=== PATIENT | female | born 2000 | race Caucasian/White ===

== ENCOUNTER 2021-11-25 06:05 | Day surgery (SDC) | payer BC, SELFPAY ==
[2021-11-25] VITALS (11 sets, daily range): BP systolic 95–117; BP diastolic 56–86; PULSE 54–81; RESP 12–18; TEMP 36.1–36.6; O2SAT 97–100; BMI 23.1
[2021-11-25] MEDS: LACTATED RINGERS 1000 ML 1,000 ML 100 ML IV ×2 (06:30→09:03)
[2021-11-25 06:33] LABS: Hemoglobin* 14.5 gm/dL (12.0-16.0)
[2021-11-25] MEDS: SODIUM CHLORIDE 0.9 % (FLUSH) 10 ML SYRINGE IVF (06:42)
[2021-11-25 06:49] LABS: Ur HCG Qualitative* Negative (Negative)
[2021-11-25] MEDS: CEFAZOLIN 2 GM INJ IVP (08:25)
--- NOTE | 2021-11-25 09:15 | P.PCN_ITS ---
Procedure Note Time Seen by Provider: :15 Date Seen: 11/25/21 Will [facility] bill your pro fee for this procedure?: Yes Procedure: Preoperative diagnosis: 21-year-old G0 * Chronic pelvic pain and severe dysmenorrhea * Desires replacement contraceptive device Postoperative diagnosis: Same. Procedure: Ultrasound-guided Nexplanon removal. Replacement of Nexplanon. Diagnostic laparoscopy. Anesthesia: General endotracheal, local. Surgeon: Jordyn Garcia MD Self Pay Specialist: GERARD Braga EBL: 8 mL Urine output: 50 mL clear urine IVF: 1000 ml Specimen: None Findings: On exam under anesthesia: The uterus was anteverted, less than 8 week size, mobile, without masses or nodularity palpable. Adnexa were without mass or fullness bilaterally. The uterus sounded to 8 cm. On laparoscopy: The uterus, bilateral fallopian tubes and ovaries all appeared normal. Normal appendix. Procedure: Amina was taken to the operating room where general anesthetic was found to be adequate. She was placed in the dorsal lithotomy position and an exam under anesthesia was performed with findings stated above. The Nexplanon replacement was performed first. Her left arm was placed in a 90 degree position. An ultrasound was performed to identify the Nexplanon as it was not palpable. The location of the Nexplanon was marked on her skin. The skin the medial left upper arm was prepped with a ChloraPrep. An incision was made over the distal aspect the Nexplanon. A small Aisha clamp was used to remove the Nexplanon. This took 3 attempts to grasp the Nexplanon prior to its removal. A new Nexplanon was placed in a position slightly superior to the previous Nexplanon using the Nexplanon insertion device. The device was palpable both by myself and the nurse. The incision was reapproximated using Exofin surgical gel and Steri-Strips. Attention was then turned to performing the laparoscopy. She was then prepped and draped in a normal sterile manner. A Jung catheter was then placed. A bivalve speculum was then placed in the vaginal canal to visu julio c the cervix. The posterior lip of the cervix was grasped with an a single- tooth tenaculum. The cervix was dilated to Hegar 6. Uterus was sounded to 8 cm. A Rami uterine manipulator was then placed. Attention was then turned to performing the laparoscopic portion of the procedure. All incisions were injected with 0.5% Marcaine prior to incision. A vertical 5 mm infraumbilical, incision, was made and a 5 mm trocar placed under direct visualization with the laparoscope. The abdomen was then insufflated with carbon dioxide gas to a pressure of 15 mm of mercury. A 5 mm, left lower quad rant port was placed approximately 3-4th finger breaths medial to the ischial crest. This was placed under direct visualization. A diagnostic laparoscopy was performed. No endometriosis was identified. The trocars were removed under direct visualization. The CO2 gas was allowed to escape the infraumbilical port prior to its removal All incisions were reapproximated using 4-0 Monocryl in a running subcuticular manner. Exofin skin adhesive was then applied and adhesive dressings applied over each incision. The uterine manipulator and Jung catheter were removed. The patient tolerated this procedure well. Sponge, lap and instrument counts were correct x2 at the end of the procedure and the patient was taken to the recovery area in stable condition. Patient received 2 g of Ancef IV prior to the procedure. She also received 30 mg IV Toradol prior to being awakened from anesthesia. Surgeon: Jordyn Garcia MD Pathology: none sent Condition: stable Disposition: PACU
--- NOTE | 2021-11-25 09:23 | W.ANESCHARGE ---
Anesthesia Charges Start Date/Time Anesthesia Start Date: 11/25/21 Anesthesia Start Time: 08:08 Stop Date/Time Anesthesia Stop Date: 11/25/21 Anesthesia Stop Time: 09:18 Summary Emergency: No
--- NOTE | 2021-11-25 09:29 | W.ANESCHARGE ---
Anesthesia Charges Start Date/Time Anesthesia Start Date: 11/25/21 Anesthesia Start Time: 08:08 Stop Date/Time Anesthesia Stop Date: 11/25/21 Anesthesia Stop Time: 09:18 Summary Emergency: No
== END 2021-11-25 10:35 | disposition home or self-care (01) ==
PROVIDERS: PCP Family Medicine; Visit Provider Obstetrics & Gynecology
PROC: (CPT 49320; principal; 2021-11-25 07:30)
DX: N94.6 Dysmenorrhea, unspecified (principal); R10.2 Pelvic and perineal pain; G89.29 Other chronic pain; Z30.46 Encounter for surveillance of implantable subdermal contraceptive
CPT/HCPCS: 11981; 49320; 00840; 36415; 76998; 81025; 85018; 86850; 86900; 86901; J0330; J0690; J1100; J2250; J2405; J2704; J2710; J3010; J3490; J7120; J7298